=== PATIENT | female | born 1985 | race Caucasian/White ===

== ENCOUNTER 2018-03-14 20:31 | Emergency (ER) | payer BC, OTHER ==
--- NOTE | 2018-03-14 20:52 | Emergency Department Record ---
History of Present Illness - General Chief Complaint: Overdose Stated Complaint: DR WANTS HER TO HAVE EKG, FEELING BAD Time Seen by Provider: 03/14/18 20:47 - History of Present Illness Initial Comments: Pt taking a tricyclic medication for headache under neurologists care and was given the wrong refill at the pharmacy. Normally she is on 50 mg daily and now has taken 150mg daily for 5 days. Feels heart racing. Hx of tachycardia with a failed ablation and on medications for tachy heart. Pt without complaint of nausea, visual change, tremor. - Related Data Home Medications Medication Instructions Recorded Confirmed Last Taken Diclofenac Sodium 50 mg PO ASDIR PRN 03/14/18 03/14/18 Unknown Diltiazem HCl [Diltiazem 24Hr ER] 120 mg PO DAILY 03/14/18 03/14/18 Unknown Dronedarone HCl [Multaq] 400 mg PO BID 03/14/18 03/14/18 Unknown Nortriptyline HCl 50 mg PO DAILY 03/14/18 03/14/18 Unknown Allergies Allergy/AdvReac Type Severity Reaction Status Date / Time Penicillins Allergy Intermediate HIVES Verified 03/14/18 20:41 Review of Systems Constitutional: Denies: Chills, Fever, Weakness Eyes: Denies: Eye discharge, Photophobia, Vision change ENT: Denies: Congestion, Dental pain Respiratory: Denies: Cough, Dyspnea Cardiovascular: Reports: Other (racing heart ). Denies: Chest pain, Dyspnea on exertion Endocrine: Denies: Fatigue Gastrointestinal: Denies: Abdominal pain, Constipation, Nausea, Vomiting Genitourinary: Denies: Abnormal menses Musculoskeletal: Denies: Arthralgia Skin: Denies: Bruising, Rash Neurological: Reports: Headache. Denies: Abnormal gait, Numbness, Seizure, Tremors, Weakness Psychiatric: Denies: Anxiety, Depression, Suicidal thoughts Hematological/Lymphatic: Denies: Anemia Past Medical History - SOCIAL HISTORY Smoking Status: Never smoker - RESPIRATORY Hx Respiratory Disorders: Yes Hx Asthma: Yes (exercise induced) - CARDIOVASCULAR Hx Cardio Disorders: Yes Comment:: hx of fluid around heart - NEURO Hx Neuro Disorders: No - GI Hx GI Disorders: Yes Comment:: internal hemorrhoids - Hx Genitourinary Disorders: No - ENDOCRINE Hx Endocrine Disorders: Yes Hx Thyroid Disease: Yes - MUSCULOSKELETAL Hx Musculoskeletal Disorders: No - PSYCH Hx Psych Problems: No - HEMATOLOGY/ONCOLOGY Hx Hematology/Oncology Disorders: Yes Hx Anemia: Yes Hx Blood Transfusions: Yes Hx Blood Transfusion Reaction: No Family Medical History Family Hx Comment (NOT TO BE USED IN PLACE OF ITEMS BELOW): mom has kassie's Hx Cancer: Mother, Grandparents Hx Heart Disease: Grandparents *Heart Comment: Cousins Physical Exam - General General Appearance: Alert, Oriented x3, Cooperative, No acute distress - Head Head exam: Atraumatic - Eye Eye exam: Normal appearance, PERRL, EOMI - ENT ENT exam: Normal exam, Mucous membranes moist, Normal external ear exam, Normal orophraynx, TM's normal bilaterally - Neck Neck exam: Normal inspection, Full ROM. negative: Tenderness - Respiratory Respiratory exam: Normal lung sounds bilaterally. negative: Wheezes - Cardiovascular Cardiovascular Exam: Regular rate, Tachycardia (105 ) - GI/Abdominal GI/Abdominal exam: Soft, Normal bowel sounds. negative: Guarding, Tenderness - Extremities Extremities exam: Normal inspection, Full ROM. negative: Tenderness - Back Back exam: Reports: Normal inspection - Neurological Neurological exam: Alert, CN II-XII intact, Normal gait, Oriented X3. negative : Motor sensory deficit - Psychiatric Psychiatric exam: Normal affect, Normal mood. negative: Anxious - Skin Skin exam: Normal color. negative: Rash Course - Reevaluation(s) Reevaluation #1: 03/14/18 20:52 Pt resting on monitor. HR 100-105. Reevaluation #2: 03/14/18 21:59 Pt on monitor with HR 80-88. Resting quiet. Some nausea , "I haven't eaten since lunch". No CP or VIJAYA. Plan for home and hold meds for two days. Resume Saturday. Follow your Doctor Saturday. Procedures - EKG Initial Date: 03/14/18 Time: 21:20 EKG: Normal EKG (HR 97) Disposition Disposition: Discharge Clinical Impression: Medication error Disposition: Home, Self-Care Condition: (2) Stable Additional Instructions: DO NOT take your medication for two days. Resume the mediation on Saturday on your normal schedule. No caffiene. Forms: Patient Portal Access Time of Disposition: 21:58 Quality - Quality Measures Quality Measures: N/A - Blood Pressure Screening Does Patient Have Any of the Following: No Blood Pressure Classification: Hypertensive Reading Systolic Measurement: 126 Diastolic Measurement: 92 Screening for High Blood Pressure: < Pre-Hypertensive BP, F/U Documented > [ [id number]] Pre-Hypertensive Follow-up Interventions: Follow-up with rescreen every year.
[2018-03-14] MEDS: ONDANSETRON 4 MG ODT TABLET SL ONE (21:48)
== END 2018-03-14 22:09 | disposition home or self-care (01) ==
LOC: ER 20:31
DX: T43.011A Poisoning by tricyclic antidepressants, accidental (unintentional), initial encounter (principal); R51 Headache; R11.0 Nausea
CPT/HCPCS: 93005; 93010; 99284